=== PATIENT | male | born 1985 | race Hispanic/Latino ===

== ENCOUNTER 2017-05-14 01:13 | Emergency (ER) | payer BC ==
[2017-05-14] MEDS ORDERED: IBUPROFEN 200 MG TAB ONE (03:00)
== END 2017-05-14 03:08 | disposition home or self-care (01) ==
LOC: EDH 01:13
DX: S09.8XXA Other specified injuries of head, initial encounter (principal); X58.XXXA Exposure to other specified factors, initial encounter; Y93.89 Activity, other specified; Y92.098 Other place in other non-institutional residence as the place of occurrence of the external cause; Y99.8 Other external cause status

== ENCOUNTER 2017-05-14 15:26 | Emergency (ER) | payer BC ==
[2017-05-14] MEDS ORDERED: ORPHENADRINE CITRATE 30 MG/ML ML ONE (16:04)
== END 2017-05-14 17:14 | disposition home or self-care (01) ==
LOC: EDH 15:26
DX: S09.8XXA Other specified injuries of head, initial encounter (principal); M62.838 Other muscle spasm; Z87.891 Personal history of nicotine dependence; X58.XXXA Exposure to other specified factors, initial encounter; Y93.89 Activity, other specified; Y92.89 Other specified places as the place of occurrence of the external cause; Y99.8 Other external cause status
CPT/HCPCS: 96372; 99283; J2360